=== PATIENT | female | born 1990 | race Hispanic/Latino ===

== ENCOUNTER 2016-12-15 14:08 | Emergency (ER) | payer BC ==
[2016-12-15 14:17] VITALS: O2SAT 100
--- NOTE | 2016-12-15 14:57 | ED PDOC ---
HPI: General Adult Time Seen by Provider: 12/15/16 14:38 Chief Complaint (Nursing): Dental Pain Chief Complaint (Provider): Facial/jaw swelling History Per: Patient History/Exam Limitations: no limitations Onset/Duration Of Symptoms: Days (x 3) Additional Complaint(s): Clemencia Brady is a 26 y/o female with no past medical history who presents to the ED complaining of facial/jaw swelling for the past 3 days, left-side greater than right. Not associated with fever, pain, or trauma. Patient notes the swelling has subsided slightly today. Denies shortness of breath, difficulty swallowing, and sore throat. Seen by dentist this morning with no dental pathology identified. Home tests have been positive, but patient was seen at [facility] today and test was negative. Reports vaginal spotting 2 weeks ago. LMP was October 2016. PMD: Unknown Past Medical History Reviewed: Historical Data, Nursing Documentation, Vital Signs Vital Signs: Last Vital Signs Temp 98 F 12/15/16 14:14 Pulse 83 12/15/16 14:14 Resp 18 12/15/16 14:14 BP 129/72 12/15/16 14:14 Pulse Ox 100 12/15/16 15:30 - Medical History PMH: No Chronic Diseases - Surgical History Surgical History: No Surg Hx - Family History Family History: States: Unknown Family Hx - Social History Current smoker - smoking cessation education provided: No Alcohol: None Drugs: Denies - Allergies Allergies/Adverse Reactions: Allergies Allergy/AdvReac Type Severity Reaction Status Date / Time Penicillins Allergy RASH Verified 12/15/16 14:12 Review of Systems ROS Statement: Except As Marked, All Systems Reviewed And Found Negative Constitutional: Negative for: Fever, Other (Trauma) ENT: Positive for: Other (Facial/jaw swelling). Negative for: Mouth Pain (or any pain), Throat Pain (or difficulty swallowing) Respiratory: Negative for: Shortness of Breath Physical Exam - Reviewed Nursing Documentation Reviewed: Yes Vital Signs Reviewed: Yes - Physical Exam Appears: Positive for: Non-toxic, No Acute Distress Head Exam: Positive for: ATRAUMATIC, NORMAL INSPECTION, NORMOCEPHALIC Skin: Positive for: Normal Color, Warm, Dry Eye Exam: Positive for: EOMI, Normal appearance, PERRL ENT: Positive for: Other (No tenderness or swelling to the mouth. Buccal mucosa no masses, no dental caries.) Neck: Positive for: Painless ROM (Mild swelling to the left mandibular area, carotid not palpable. No erythema. No tenderness or warmth. No swelling or tenderness to the submandibular area), Supple (thyroid non-palpable ) Cardiovascular/Chest: Positive for: Regular Rate, Rhythm. Negative for: Murmur Respiratory: Positive for: Normal Breath Sounds. Negative for: Accessory Muscle Use, Respiratory Distress Gastrointestinal/Abdominal: Positive for: Soft. Negative for: Tenderness Extremity: Positive for: Normal ROM. Negative for: Deformity Neurologic/Psych: Positive for: Alert, Oriented - Laboratory Results Result Diagrams: 12/15/16 15:09 12/15/16 15:09 - ECG O2 Sat by Pulse Oximetry: 100 (RA) Pulse Ox Interpretation: Normal Medical Decision Making Medical Decision Making: Time: 14:48 Initial Plan: --CMP --CBC --Beta-HCG --Mumps virus Ab (IgM) Scribe Attestation: Documented by Jenny Thompson, acting as a scribe for Ludwig Camargo MD Provider Scribe Attestation: All medical record entries made by the Scribe were at my direction and personally dictated by me. I have reviewed the chart and agree that the record accurately reflects my personal performance of the history, physical exam, medical decision making, and the department course for this patient. I have also personally directed, reviewed, and agree with the discharge instructions and disposition. Disposition - Clinical Impression Clinical Impression: Asymmetry of mandible - Patient ED Disposition Is Patient to be Admitted: Transfer of Care - Disposition Disposition: Transfer of Care Disposition Time: 16:57 Condition: FAIR Forms: Walle[employer] (Chinese) Patient Signed Over To: Dana Manrique
[2016-12-15 15:19] LABS: BASO # 0.1 K/uL (0.0-0.2); BASO % 1.3 % (0.0-2.0); EOS # 0.2 K/uL (0.0-0.7); EOS % 2.9 % (0.0-4.0); HEMATOCRIT 38.8 % (34.0-47.0); LYMPH # 1.4 K/uL (1.0-4.3); LYMPH % 19.8 % (20.0-40.0); MEAN CELL VOLUME 90.3 fl (81.0-99.0); MEAN CORPUSCULAR HEMOGLOBIN 30.8 pg (27.0-31.0); MEAN CORPUSCULAR HGB CONC 34.1 g/dL (33.0-37.0); MEAN PLATELET VOLUME 9.1 fl (7.2-11.7); MONO # 0.6 K/uL (0.0-0.8); MONO % 9.1 % (0.0-10.0); NEUT # 4.8 K/uL (1.8-7.0); NEUT % 66.9 % (50.0-75.0); RED CELL DISTRIBUTION WIDTH 12.3 % (11.5-14.5); WHITE BLOOD COUNT 7.1 K/uL (4.8-10.8)
[2016-12-15 15:28] LABS: ALB/GLOB RATIO 1.4 (1.0-2.1); ALKALINE PHOSPHATASE 49 U/L (38-126); ALT/SGPT 32 U/L (9-52); AST/SGOT 18 U/L (14-36); BILIRUBIN,TOTAL 1.6 mg/dl (0.2-1.3); BLOOD UREA NITROGEN 7 mg/dl (7-17); CALCIUM 9.4 mg/dL (8.4-10.2); CARBON DIOXIDE 25 mmol/L (22-30); CHLORIDE 102 mmol/L (98-107); GFR AFRICAN-AMERICAN > 60; GLUCOSE,RANDOM 90 mg/dL (65-105); POTASSIUM 3.8 MMOL/L (3.6-5.0); SODIUM 139 mmol/l (132-148); TOTAL PROTEIN 7.4 G/DL (6.3-8.2)
--- NOTE | 2016-12-15 18:24 | ED PDOC ---
- Laboratory Results Result Diagrams: 12/15/16 15:09 12/15/16 15:09 - ECG O2 Sat by Pulse Oximetry: 100 (RA) Pulse Ox Interpretation: Normal Medical Decision Making Medical Decision Making: Patient signed out to provider at [address] Camargo pending ER workup and final disposition. Accession No. : [id number] Patient Name / ID : NORMA MONCADA / [id number] Exam Date : 12/15/2016 17:36:22 ( Approved ) Study Comment : Sex / Age : F / 26Y Creator : Kesha Ngo MD Dictator : Publicity Agent : Flight Engineer Inspector : Kesha Ngo MD Approver2 : Report Date : 12/15/2016 18:29:13 My Comment : Indication: Rule out ectopic Comparison: None available Technique: Transvaginal pelvic ultrasound Findings: Uterus measures approximately 8.0 x 2.5 x 3.9 cm. Cervix length measures approximately 3.1 cm. No intrauterine gestational sac identified. The presumed right ovary measures approximately 9.9 x 6.3 x 8.9 cm. 9.2 x 6.2 x 8.4 cm anechoic avascular lesion consistent with a cyst. The left ovary measures 2.8 x 2.3 x 3.0 cm. Blood flow was demonstrated to both ovaries. Impression: No intrauterine gestational sac identified. No evidence of intrauterine gestational sac. If indeed the patient is based on serum beta HCG values, the sonographic findings represent either: Very early IUP; embryonic demise; ectopic gestation. Follow-up with serial quantitative serum beta HCG measurements and post OBGYN follow-up as clinically indicated, since ectopic gestation cannot be excluded based only on sonographic findings. 9.2 x 6.2 x 8.4 cm anechoic avascular right adnexal lesion appears compatible with a large ovarian cyst. Recommend clinical correlation and suggest 6 week ultrasound follow-up to assess for resolution. EXAM: CT Neck With Intravenous Contrast CLINICAL HISTORY: 26 years old, female; Pain; Painful swallowing; Patient HX: Pat present to ed C/ O of facial/jaw swelling for the past 3 days; Additional info: Left sided swelling TECHNIQUE: Axial computed tomography images of the neck with intravenous contrast. This CT exam was performed using one or more of the following dose reduction techniques: automated exposure control, adjustment of the mA and/or kV according to patient size, and/or use of iterative reconstruction technique. Coronal and sagittal reformatted images were created and reviewed. CONTRAST: 95 mL of omnipaque 300 administered intravenously. COMPARISON: No relevant prior studies available. FINDINGS: Nasopharynx: Unremarkable. Oropharynx: Unremarkable. No significant tonsillar enlargement. No peritonsillar abscess. Hypopharynx: Unremarkable. Larynx: Unremarkable. Normal epiglottis. Trachea: Unremarkable. Retropharyngeal space: Unremarkable. Submandibular/parotid glands: Unremarkable. Glands are normal in size. Thyroid: Unremarkable. No enlarged or calcified nodules. Bones/joints: No acute fracture. Soft tissues: There is subcutaneous edema or cellulitis in the anterior neck including the bilateral submandibular regions without visible soft tissue abscess. Vasculature: No acute findings. Lymph nodes: There is mild bilateral level II cervical lymphadenopathy. Lung apices: Unremarkable as visualized. IMPRESSION: 1. There is subcutaneous edema or cellulitis in the anterior neck including the bilateral submandibular regions without visible soft tissue abscess. 2. There is mild bilateral level II cervical lymphadenopathy. Thank you for allowing us to participate in the care of your patient. Dictated and Authenticated by: Alok Duffy MD 12/15/2016 7:31 PM Eastern Time ([place] & [place] Scribe Attestation Documented by Tawnya Sidhu acting as a scribe for Myrna Whyte MD. Provider Attestation: All medical record entries made by the Scribe were at my direction and personally dictated by me. I have reviewed the chart and agree that the record accurately reflects my personal performance of the history, physical exam, medical decision making, and the department course for this patient. I have also personally directed, reviewed, and agree with the discharge instructions and disposition. Disposition Counseled Patient/Family Regarding: Studies Performed, Diagnosis, Need For Followup, Rx Given - Clinical Impression Clinical Impression: Facial swelling - POA Present On Arrival: None - Disposition Referrals: [facility] [Outside] [facility] [Outside] Disposition: Routine/Home Disposition Time: 19:49 Condition: GOOD Additional Instructions: THE SWELLING ON YOUR FACE MAY BE CELLULITIS. TAKE THE ANTIBIOTICS AND FOLLOW UP WITH A PRIMARY CARE PROVIDER IN 48 HOURS TO SEE HOW YOU ARE DOING. YOU WILL ALSO NEED FOLLOW UP WITH GYNECOLOGY FOR YOUR OVARIAN CYST. [facility] [employer] [facility] WILL ASSIST YOU IN MAKING FOLLOW UP APPOINTMENTS. Prescriptions: Clindamycin [Cleocin] 300 mg PO TID #21 cap Instructions: Cellulitis (ED), Ovarian Cyst (ED) Forms: Servio (Austrian)
--- NOTE | 2016-12-15 18:30 | US ---
Indication: Rule out ectopic Comparison: None available Technique: Transvaginal pelvic ultrasound Findings: Uterus measures approximately 8.0 x 2.5 x 3.9 cm. Cervix length measures approximately 3.1 cm. No intrauterine gestational sac identified. The presumed right ovary measures approximately 9.9 x 6.3 x 8.9 cm. 9.2 x 6.2 x 8.4 cm anechoic avascular lesion consistent with a cyst. The left ovary measures 2.8 x 2.3 x 3.0 cm. Blood flow was demonstrated to both ovaries. Impression: No intrauterine gestational sac identified. No evidence of intrauterine gestational sac. If indeed the patient is based on serum beta HCG values, the sonographic findings represent either: Very early IUP; embryonic demise; ectopic gestation. Follow-up with serial quantitative serum beta HCG measurements and post OBGYN follow-up as clinically indicated, since ectopic gestation cannot be excluded based only on sonographic findings. 9.2 x 6.2 x 8.4 cm anechoic avascular right adnexal lesion appears compatible with a large ovarian cyst. Recommend clinical correlation and suggest 6 week ultrasound follow-up to assess for resolution.
[2016-12-15] MEDS ORDERED: Iohexol 300 100 ML IJ ONE (18:41)
[2016-12-15] MEDS ORDERED: Sodium Chloride 0.9% 50 ML IV ONE (18:42)
[2016-12-15 19:52] VITALS: BP 122/78; PULSE 86; RESP 16; TEMP 98
--- NOTE | 2016-12-16 07:34 | CT ---
PROCEDURE: CT NECK WITH CONTRAST HISTORY: LEFT sided swelling COMPARISON: None TECHNIQUE: CT of the neck with intravenous contrast. Coronal and sagittal reformats generated. Intravenous contrast dose: Omnipaque 300, 95 cc Radiation dose: DLP 372 mGy-cm This CT exam was performed using one or more of the following dose reduction techniques: Automated exposure control, adjustment of the mA and/or kV according to patient size, and/or use of iterative reconstruction technique. FINDINGS: NASOPHARYNX: Unremarkable. SUPRAHYOID NECK: Unremarkable oropharynx, oral cavity, parapharyngeal space and retropharyngeal space. INFRAHYOID NECK: Unremarkable larynx, hypopharynx, and supraglottic space. Vocal cords intact. MASS: None. GLANDS: Parotid and submandibular glands unremarkable. Normal size thyroid gland, without nodule. LYMPH NODES: There is somewhat numerous bilateral submandibular lymph nodes with short axis is less than 1 cm in each case. CERVICAL SPINE: No fracture or focal lesion. VASCULAR STRUCTURES: Unremarkable. OTHER FINDINGS: No abscess or other fluid collection seen throughout the supra or infrahyoid neck, in either superficial or deep soft tissues. However, reticular markings are increased mildly at the lower face overlying the mandible bilaterally and also in the bilateral submandibular fat somewhat. IMPRESSION: No supra or infrahyoid neck mass or abscess with limited cellulitis type pattern suggested at the lower face overlying the bilateral mandibles and in the submandibular space mildly without focal submandibular gland pathology appreciated at this time bilaterally. Borderline submandibular lymphadenopathy. Further clinical correlation advised.
[2016-12-16 12:47] LABS: MUMPS VIRUS AB (IGG) >300.00 AU/mL
[2016-12-18 20:21] LABS: MUMPS VIRUS AB (IGM) <1:20
== END 2016-12-15 20:00 | disposition home or self-care (01) ==
LOC: H.ER 14:08
DX: R22.0 Localized swelling, mass and lump, head (principal); Z88.0 Allergy status to penicillin
CPT/HCPCS: 70491; 76817; 80053; 81025; 84702; 85025; 86308; 86735; 99283; Q9967